=== PATIENT | male | born 1955 | race Caucasian/White ===

== ENCOUNTER 2017-03-27 08:22 | Outpatient (CLI) | payer BC ==
[~2017-03-27] VITALS: Ht 185.4 cm; Wt 181.4 kg
[2017-03-27] MEDS ORDERED: albuterol 2.5 MG/3 ML nebule NEB ONE (09:05)
== END 2017-03-27 23:59 | disposition home or self-care (01) ==
LOC: RT 08:22 → EDBD 09:00 → RT 23:59
PROVIDERS: ATTEND Internal Medicine Pulmonary Disease
DX: J44.9 Chronic obstructive pulmonary disease, unspecified (principal); F17.200 Nicotine dependence, unspecified, uncomplicated; R06.09 Other forms of dyspnea; R05 Cough
CPT/HCPCS: 85018; 94060; 94640; 94727; 94729; 94760

== ENCOUNTER 2019-01-28 10:03 | Outpatient (CLI) | payer MEDICARE, BC ==
[~2019-01-28] VITALS: Ht 185.4 cm; Wt 176.9 kg
[2019-01-28 10:36] LABS: TOTAL HEMOGLOBIN 13.7 G/dl (14.0-17.9)
[2019-01-28] MEDS ORDERED: albuterol 2.5 MG/3 ML nebule NEB PRN (10:45)
== END 2019-01-28 23:59 | disposition home or self-care (01) ==
LOC: RT 10:03
PROVIDERS: ATTEND Internal Medicine Pulmonary Disease
DX: J44.9 Chronic obstructive pulmonary disease, unspecified (principal); Z79.899 Other long term (current) drug therapy; Z87.891 Personal history of nicotine dependence
CPT/HCPCS: 85018; 94060; 94727; 94729; 94760

== ENCOUNTER 2024-11-02 11:54 | Outpatient (CLI) | payer MEDICARE ==
[~2024-11-02 11:54] MED LIST: ALLO100T25 PO; AMLO2.5T2 PO; ATOR40TA PO; ESCI20TA39 PO; ESZO3TAB44 PO; FURO-150 PO; GABA-530 PO; HYDR100T12 PO; LISI40TA20 PO; LORA2TAB96 PO; METO-411 PO; Revia PO; UMEC62.5
--- NOTE | 2024-11-02 19:02 | CARDIOLOGY REPORT ---
APPROVED REPORT EXAM: Comprehensive 2D, Doppler, and color-flow Echocardiogram. Patient Location: OUTPATIENT Heart Rate: 90's bpm Rhythm: SINUS Indications ATRIAL FIBRILLATION CONGESTIVE HEART FAILURE COPD [employer] Controller: Daniel Pavon MD Previous echo: 11-02-24 [facility] 12-25-19 EF 60-65%, RVSP 38 mmHg, LAE, trTR, trMR 2D Dimensions LVOT Diameter 2.22 (1.8-2.4cm) M-Mode Dimensions Aortic Root 4.16 (2.2-3.7cm) Aortic Valve AoV Peak Osvaldo. 168.0 cm/s AoV VTI 28.4 cm AO Peak GR. 11.3 mmHg AO Mean GR. 6 mmHg LVOT VTI 17.28 cm LVOT Peak Osvaldo. 90.0 cm/s LARON (VTI) 2.35 cm2 Mitral Valve MV E Velocity 60.5 cm/s MV DECEL TIME 160 ms MV A Velocity 92.9 cm/s MV PHT 63 ms E/A Ratio 0.7 MVA (PHT) 3.47 cm2 LEFT VENTRICLE Grossly normal LV size and wall thickness. Overall systolic function is normal. LVEF is 60%? TDS RIGHT VENTRICLE RV appears atleast mildly dilated with normal function. TDS ATRIA Left atrium appears atleast mildly dilated. TDS AORTIC VALVE Probable trileaflet AV appears mildly sclerotic without stenosis. No insufficiency. TDS MITRAL VALVE Mild MV annular calcification without stenosis. Trace regurgitation. TDS TRICUSPID VALVE TV appears structurally normal with trace regurgitation. TDS PULMONIC VALVE Pulmonic valve is not well visualized. TDS GREAT VESSELS Aortic root is mildly dilated, at 4.16 cm. PERICARDIUM Normal pericardium. No effusion. Other Information Study Quality: Technically Difficult due to poor imaging windows, body habitus & respiratory status. Conclusion Technically difficult study. Grossly normal LV size and wall thickness. Overall systolic function is normal. LVEF is 60% RV appears atleast mildly dilated with normal function. Left atrium appears atleast mildly dilated. Probable trileaflet AV appears mildly sclerotic without stenosis. No insufficiency. Mild MV annular calcification without stenosis. Trace regurgitation. TV appears structurally normal with trace regurgitation. Aortic root is mildly dilated, at 4.16 cm. Normal pericardium. No effusion.
== END 2024-11-02 23:59 | disposition home or self-care (01) ==
LOC: CARD DIAG 11:54
PROVIDERS: ATTEND Nurse Practitioner Family
DX: I34.81 Nonrheumatic mitral (valve) annulus calcification (principal); I48.91 Unspecified atrial fibrillation
CPT/HCPCS: 93306